=== PATIENT | female | born 1975 | race Caucasian/White ===

== ENCOUNTER → 2016-07-07 | Outpatient (CLI) | payer OTHER ==
--- NOTE | 2016-07-07 15:16 | RAD ---
Abdomen, 2 views, 07/07/2016: History: Nausea, abdominal pain The abdominal gas pattern is unremarkable without evidence of obstruction. No free air is seen in the abdomen. There is no evidence of organomegaly. There are surgical sutures and clips in the pelvis bilaterally. There is mild linear atelectasis or scarring in the lung bases. IMPRESSION: 1. Previous pelvic surgery. 2. No acute abdominal abnormality is detected.
--- NOTE | 2016-07-07 15:25 | RAD ---
Left knee, 3 views, 07/07/2016: History: Knee pain, instability No fracture or dislocation is identified. No significant arthritic change is seen. The periarticular soft tissues are unremarkable. IMPRESSION: No significant left knee abnormality is detected.
== END | disposition home or self-care (01) ==
LOC: DXRAD 11:48
PROVIDERS: ATTEND Nurse Practitioner
DX: M25.562 Pain in left knee (principal); R11.0 Nausea; K21.9 Gastro-esophageal reflux disease without esophagitis
CPT/HCPCS: 73562; 74020

== ENCOUNTER → 2017-05-07 | Outpatient (CLI) | payer OTHER ==
--- NOTE | 2017-05-07 13:55 | RAD ---
Three-view lumbar spine 05/07/2017 Clinical indication: Low back pain radiating to the right. Comparison: None. Findings: There are 5 nonrib-bearing lumbar type vertebral bodies with the first considered L1. Multiple pelvic surgical clips. Normal lumbar alignment. The vertebral body heights and disc spaces are maintained. No evidence of significant listhesis. Impression: No radiographic evidence of acute lumbar spine fracture or listhesis.
== END | disposition home or self-care (01) ==
LOC: DXRAD 13:29
PROVIDERS: ATTEND Family Medicine
DX: M54.5 Low back pain (principal); Z98.890 Other specified postprocedural states
CPT/HCPCS: 72100

== ENCOUNTER → 2020-08-12 | Outpatient (CLI) | payer OTHER, MEDICARE ==
--- NOTE | 2020-08-12 13:47 | RAD ---
EXAM: Bilateral screening mammogram. HISTORY: 44-year-old female presents for screening mammography. TECHNIQUE: Full-field digital craniocaudal and mediolateral oblique views of both breasts are obtaine d for evaluation. Computer aided detection was applied. COMPARISON: 09/18/2014 BREAST PARENCHYMAL DENSITY: Level C - Heterogeneously dense. FINDINGS: There is no new suspicious mass, microcalcification or region of architectural distortion. IMPRESSION: BI-RADS Category 2: Benign finding(s). RECOMMENDATION: Annual mammography is recommended. If your mammogram demonstrates that you have dense breast tissue, which could hide abnormalities, and if you have other risk factors for breast cancer that have been identified, you might benefit from s upplemental screening tests that may be suggested by your ordering physician. Dense breast tissue, i n and of itself, is a relatively common condition. This information is not provided to cause undue c oncern, but rather to raise your awareness and to promote discussion with your physician regarding th e presence of other risk factors, in addition to dense breast tissue. A report of your mammography re sults will be sent to you and your physician. You should contact your physician if you have any ques tions or concerns regarding this report. Mammography is a sensitive method for finding small breast cancers, but it does not detect them all a nd is not a substitute for careful clinical examination. A negative mammogram does not negate a clin ically suspicious finding and should not result in delay in biopsying a clinically suspicious abnorma lity. PQRS compliance statement - Patient information was entered into a reminder system with a target due date for the next mammogram. "Our facility is accredited by the [employer] Mammography [employer]." Electronically signed by: Nazia Montgomery MD (08/12/2020 1:34 PM) [id number]
== END ==
LOC: MAMMO 09:51
PROVIDERS: ATTEND Family Medicine
DX: Z12.31 Encounter for screening mammogram for malignant neoplasm of breast (principal)
CPT/HCPCS: 77067